=== PATIENT | male | born 1995 | race American Indian/Alaskan Native ===

== ENCOUNTER 2018-01-30 00:09 | Emergency (ER) | payer SELFPAY ==
[2018-01-30] MEDS ORDERED: SOLU-Medrol IV ONE (00:19)
[2018-01-30] MEDS ORDERED: PEPCID IV ONE (00:19)
--- NOTE | 2018-01-30 02:00 | Emergency Department Report ---
HPI - General Chief Complaint: Allergic Reaction Time Seen by Provider: 01/30/18 00:19 - HPI HPI: Earlier today, pt was eating pizza and went to sleep. He woke up with hives and facial swelling. Has a gluten allergy. EMS was called who gave him epinephrine and benadryl. They brought him to the ER for further evaluation. The last time that he had a reaction like this was 2 years ago. ED Past Medical Hx - Past Medical History Previous Medical History?: No - Surgical History Past Surgical History?: Yes Additional Surgical History: L't knee surg - Social History Smoking Status: Current Every Day Smoker Substance Use Type: None - Medications Home Medications: Home Medications Medication Instructions Recorded Confirmed Last Taken Type EPINEPHrine [Epipen] 0.3 mg IJ DAILY PRN #1 auto.injct 01/30/18 Unknown Rx ED Review of Systems ROS: Stated complaint: ALLERGIC REACTION Other details as noted in HPI Comment: All other systems reviewed and negative ENT: other (facial swelling but no throat/airway involvement) Skin: rash, pruritus Physical Exam - Physical Exam Vital Signs: Vital Signs 01/30/18 01/30/18 00:26 00:33 Temperature 98.1 F 98.1 F Pulse Rate 86 86 Respiratory 22 22 Rate Blood Pressure 149/79 Blood Pressure 149/79 [Left] O2 Sat by Pulse 95 95 Oximetry General: resting comfortably, in no distress Physical Exam: RRR, no m/r/g. CTAB. ABd soft and nontender/nondistended. SKin w/o evidence of rash. Oropharynx is open and unremarkable, moist. A&Ox3. Normal mood/affect. ED Course Vital Signs 01/30/18 01/30/18 00:26 00:33 Temperature 98.1 F 98.1 F Pulse Rate 86 86 Respiratory 22 22 Rate Blood Pressure 149/79 Blood Pressure 149/79 [Left] O2 Sat by Pulse 95 95 Oximetry ED Medical Decision Making - Medical Decision Making 22 yo male with no sig pmhx that presents with allergic reaction. Vital signs are stable. Patient is well-appearing. He is in no respiratory distress. Oropharynx is unremarkable. After given him Solu-Medrol and Pepcid in the ER. He'll be monitored for 2 or 3 hours following epinephrine administration. The patient remains stable, he'll be discharged home with an EpiPen. - Differential Diagnosis contact dermatitis, urticaria, anaphylaxis, angioedema Critical care attestation.: If time is entered above; I have spent that time in minutes in the direct care of this critically ill patient, excluding procedure time. ED Disposition Clinical Impression: Allergic reaction Disposition: DC- TO HOME OR SELFCARE Is pt being admited?: No Does the pt Need Aspirin: No Condition: Stable Instructions: Anaphylaxis (ED) Prescriptions: EPINEPHrine [Epipen] 0.3 mg IJ DAILY PRN #1 auto.injct PRN Reason: Anaphylaxis Referrals: PRIMARY CARE, [Primary Care Provider] - 3-5 Days
[2018-01-30 03:02] VITALS: BP 148/59
== END 2018-01-30 03:01 | disposition home or self-care (01) ==
LOC: ED 00:09
DX: T78.1XXA Other adverse food reactions, not elsewhere classified, initial encounter (principal); L50.9 Urticaria, unspecified; F17.200 Nicotine dependence, unspecified, uncomplicated; Z91.018 Allergy to other foods; X58.XXXA Exposure to other specified factors, initial encounter
CPT/HCPCS: 96374; 96375; 99283; J2930